=== PATIENT | female | born 1965 | race Caucasian/White ===

== ENCOUNTER → 2020-05-04 | Outpatient (CLI) | payer OTHER, SELFPAY ==
[2020-05-04 17:27] LABS: International Normalized Ratio 1.1; Prothrombin Time (Protime)PT. 14.1 SECONDS (11.7-14.9)
== END | disposition home or self-care (01) ==
PROVIDERS: PCP Internal Medicine; Visit Provider Internal Medicine
DX: D69.2 Other nonthrombocytopenic purpura (principal)
CPT/HCPCS: 85610